=== PATIENT | male | born 1960 | race Caucasian/White ===

== ENCOUNTER 2023-02-13 15:55 | Emergency (ER) | payer OTHER, SELFPAY ==
[2023-02-13 16:04] VITALS: BP 143/74; PULSE 95; RESP 20; TEMP 37.3; O2SAT 95
--- NOTE | 2023-02-13 16:17 | ED.URI ---
HPI - URI/Sore Throat General Chief Complaint: Upper Respiratory Infection Stated Complaint: Cough and Trouble Breathing History of Present Illness HPI Narrative: Patient presents with a COPD flare. Patient states he has been coughing and coughing up productive at times green yellow sputum. No shortness of breath no chest pain. Patient is unsure of his home medications states he does have inhalers at home. Related Data Home Medications Medication Instructions Recorded Confirmed metoprolol tartrate 50 mg tablet mg 02/13/23 omeprazole 20 mg capsule,delayed mg 02/13/23 release Allergies Allergy/AdvReac Type Severity Reaction Status Date / Time No Known Allergies Allergy Unverified 10/16/17 15:35 Review of Systems Review of Systems: CONSTITUTIONAL: Denies chills, or sweats. Reports fever and generalized body aches EYES: Denies visual changes, redness, or discharge. ENT: Denies otalgia. Reports nasal congestion runny nose and sore throat CARDIOVASCULAR: Denies chest pain, palpitations, or edema. RESPIRATORY: Denies dyspnea. Reports occasional cough GASTROINTESTINAL: Denies abdominal pain, nausea, vomiting, or diarrhea. GENITOURINARY: Denies dysuria or hematuria. SKIN: Denies rash or itching. MUSCULOSKELETAL: Denies back pain, joint pain, or myalgia. Reports generalized body aches NEUROLOGIC: Denies headache, numbness, or weakness. PSYCHIATRIC: Denies anxiety or depression. PMFSH Comments At time of signature, agree with nursing past medical, surgical, social and family history. There is no relevant family history pertinent to the presenting complaint Exam Narrative: The patient is a well-developed, well-nourished in no acute distress. SKIN: Skin is warm and dry without erythema, swelling or exudate. There is good turgor. No tenting. HEAD: Atraumatic. Normocephalic. No temporal or scalp tenderness. EYES: Moist and bright. Sclera and conjunctivae normal. No discharge. PERRLA. Extraocular motions intact. Gross visual acuity intact. EARS: Pinna is normal shape and contour. Clear external auditory canals. TM pearly caro with good cone of light, no erythema or suppuration. Bilateral cerumen noted no gross hearing deficit. NOSE: pink, moist mucosa with good air movement. Clear rhinorrhea without nasal flaring. Septum midline. Mouth: moist mucous membranes. THROAT; mild erythema noted to posterior oropharynx with moderate postnasal drainage. Without exudate or ulceration.. Uvula midline. Normal movement of soft palate. NECK: Supple and nontender with full range of motion without discomfort. No meningeal signs. LUNGS: Equal and bilateral breath sounds without wheezes, rales or rhonchi. CHEST: The chest wall is without retractions or use of accessory muscles. Scattered expiratory wheezes with coarse breath sounds left lower base HEART: Has a regular rate and rhythm without murmur, gallops, click or rub. ABDOMEN: Soft, nontender with positive active bowel sounds. No rebound tenderness. EXTREMITIES: Without cyanosis, clubbing or edema. Equal 2+ distal pulses and 2 second capillary refill noted. NEUROLOGIC: alert, active, . The patient moves all extremities with normal muscle strength. Normal muscle tone is noted. Normal coordination is noted. NO focal neurological findings noted. Course Course Level of Care: Express Care Visit Vital Signs Vital signs: Vital Signs Temperature 37.3 C 02/13/23 16:04 Pulse Rate 95 02/13/23 16:04 Respiratory Rate 20 02/13/23 16:04 Blood Pressure 143/74 H 02/13/23 16:04 Pulse Oximetry 95 02/13/23 16:04 Oxygen Delivery Room Air 02/13/23 16:04 Temperature 37.3 C 02/13/23 16:04 Pulse Rate 95 02/13/23 16:04 Respiratory Rate 20 02/13/23 16:04 Blood Pressure 143/74 H 02/13/23 16:04 Pulse Oximetry 95 02/13/23 16:04 Oxygen Delivery Room Air 02/13/23 16:04 My blood pressure Please KB schedule a followup visit with your personal physician for
== END 2023-02-13 16:29 | disposition home or self-care (01) ==
PROVIDERS: Emergency Provider Nurse Practitioner Family
DX: J40 Bronchitis, not specified as acute or chronic (principal); J06.9 Acute upper respiratory infection, unspecified; J44.9 Chronic obstructive pulmonary disease, unspecified
CPT/HCPCS: 99203; G0463

== ENCOUNTER 2023-08-30 09:42 | Emergency (ER) | payer OTHER, SELFPAY | END 2023-08-30 10:00 | disposition left against medical advice (07) | LOC: EXPBETH 09:47 | PROVIDERS: Emergency Provider Nurse Practitioner Family | DX: Z53.21 Procedure and treatment not carried out due to patient leaving prior to being seen by health care provider (principal) | CPT/HCPCS: 99199 ==